=== PATIENT | male | born 1960 | race Caucasian/White ===

== ENCOUNTER 2019-12-19 10:25 | Outpatient (CLI) | payer BC, SELFPAY ==
[2019-12-19 10:45] LABS: Basophils Absolute Auto 0.02 K/mm3 (0.00-0.10); Basophils Percent Auto 0.3 % (0.0-1.0); Eosinophils Absolute Auto 0.19 K/mm3 (0.02-0.50); Eosinophils Percent Auto 3.2 % (1.0-6.0); Hematocrit 41.4 % (40.0-54.0); Hemoglobin 14.3 g/dL (14.0-18.0); Immature Granulocyte Absolute 0.02 K/mm3 (0.00-0.00); Immature Granulocyte Percent A 0.3 % (0.0-0.0); Lymphocytes Absolute Auto 1.58 K/mm3 (1.10-4.50); Mean Corpuscular HGB Conc 34.5 g/dL (32.0-36.0); Mean Platelet Volume 10.5 fl (8.7-11.0); Monocytes Percent Auto 6.8 % (2.0-11.0); Neutrophils Absolute Auto 3.6 K/mm3 (1.7-7.2); Neutrophils Percent Auto 62.4 % (50.0-70.0); Platelet Count Result 211 K/mm3 (150-420); Red Blood Count 4.76 M/mm3 (4.70-6.10); Red Cell Distribution Width 11.9 % (11.6-14.4); White Blood Count 5.9 K/mm3 (4.8-10.8)
[2019-12-19 11:08] LABS: Appearance Urine Clear (Clear); Bilirubin Urine Negative (Negative); Color Urine Yellow (Yellow); Glucose Urine UA Negative (Negative); Ketones Urine Negative (Negative); Leukocyte Esterase Ur Negative (Negative); Nitrate Urine Negative (Negative); Protein Urine Negative (Negative); Specific Grav Ur >= 1.030 (1.010-1.020); Urobilinogen Urine 0.2 mg/dL (0.2-1.0); pH Urine 5.5 (5.0-8.0)
[2019-12-19 11:39] LABS: Alanine Aminotransferase 50 U/L (16-63); Albumin Level 4.4 g/dL (3.4-5.0); Alkaline Phosphatase 79 U/L (46-116); Anion Gap 15.3 mmol/L (7-16); Aspartate Amino Transferase 26 U/L (15-37); Bilirubin,Total 1.5 mg/dL (0.00-1.00); Calcium 8.5 mg/dL (8.5-10.1); Carbon Dioxide 26 mmol/L (21-32); Chloride 106 mmol/L (98-108); Cholesterol 104 mg/dL (0-200); Estimated Glomerular Filt Rate > 60; Glucose 100 mg/dL (70-99); HDL Direct 33 mg/dL (40-60); LDL Cholesterol Calculated 52 mg/dL (<130); Potassium 4.3 mmol/L (3.5-5.1); Prostate Specific Antigen 0.7 ng/mL (< OR = 4.0); Sodium 143 mmol/L (136-145); Thyroid Stimulating Hormone 1.25 uIU/mL (0.36-3.74); Total Protein 6.9 g/dL (6.4-8.2); Triglycerides 94 mg/dL (0-150)
[2019-12-19 11:42] LABS: Add Urine Microscopic? YES; Blood Urine Trace-Intact (Negative); RBC Urine 0-2 /hpf (0-2); WBC Urine 0-3 /hpf (0-3)
[2019-12-19 11:43] LABS: Bacteria Urine None seen /hpf; Squamous Epithelial Cell Urine Rare /hpf (Few)
[2019-12-19 11:51] LABS: Blood Urea Nitrogen 13 mg/dL (7-18); Osmolality Calculated 296 mOsm/kg (285-295)
== END 2019-12-19 10:26 | disposition home or self-care (01) ==
PROVIDERS: PCP Internal Medicine; Visit Provider Internal Medicine
DX: Z00.00 Encounter for general adult medical examination without abnormal findings (principal); E78.5 Hyperlipidemia, unspecified; Z12.5 Encounter for screening for malignant neoplasm of prostate
CPT/HCPCS: 36415; 80053; 80061; 81001; 84153; 84443; 85025; G0103

== ENCOUNTER 2020-05-23 11:48 | Emergency (ER) | payer BC, SELFPAY ==
--- NOTE | ~2020-05-23 | CT_ITS ---
EXAMINATION: CT abdomen pelvis w con EXAM DATE: 05/23/2020 13:40 INDICATION: Fever, body ache, nausea. TECHNIQUE: Spiral CT of the abdomen and pelvis was performed following intravenous injection of 100 m L Omnipaque 350. Axial, coronal and sagittal images were reviewed. The dose-length product (DLP) fo r this examination was 965.01 mGy-cm. The exposure was tailored according to patient size (auto mA e xposure control), and iterative reconstruction (ASIR) was used as additional dose reduction technique . Comparison is made to prior examination from 02/02/2013. FINDINGS: The liver, spleen, adrenal glands and pancreas are unremarkable. Gallbladder is unremarkab le. No biliary obstruction. Portal and splenic veins are patent. Kidneys enhance symmetrically. T here is no hydronephrosis. The prostate is unremarkable. Small left inguinal fat-containing hernia. The bladder is unremarkable. There is no retroperitoneal or pelvic lymphadenopathy. The appendix is normal. The stomach and small bowel are unremarkable. There is expected amount of c olonic stool. No free intraperitoneal gas. The heart is normal in size. There are no pericardial or pleural effusions. The lung bases are unremarkable. There are no osteoblastic or osteolytic les ions identified. IMPRESSION: 1. No acute intra-abdominal findings. Reviewed, dictated and finalized at location A.
--- NOTE | ~2020-05-23 | XR_ITS ---
EXAMINATION: XR chest 2V EXAM DATE: 05/23/2020 13:43 INDICATION: Chest pain. Nausea, body aches. TECHNIQUE: Frontal and lateral projections of the chest obtained and reviewed. Comparison is made to prior examination from 05/04/2008. FINDINGS: Left midlung zone granuloma. The lungs are otherwise clear. There are no pleural effusion s. The cardiomediastinal silhouette is within normal limits. There is no pneumothorax suspected. T he bones and soft tissues are unremarkable. IMPRESSION: No acute cardiopulmonary findings. Reviewed, dictated and finalized at location A.
[2020-05-23 12:10] VITALS: BP 131/79; PULSE 106; RESP 16; TEMP 37.6; O2SAT 95
--- NOTE | 2020-05-23 12:14 | ECG_ITS ---
Measurements Intervals [place] Rate: 94 P: 18 NV: 136 QRS: -13 QRSD: 106 T: 14 QT: 350 QTc: 438 Interpretive Statements SINUS RHYTHM BASELINE ARTIFACT- I, III, AVR, AVL NORMAL ECG Electronically Signed On 05-23-2020 14:13:04 CDT by Dandre Espana D.O.
[2020-05-23] MEDS: ONDANSETRON INJ 4 MG/2 ML VIAL IV PUSH (12:31)
[2020-05-23] MEDS: PANTOPRAZOLE SODIUM IV 40 MG VIAL IV PUSH (12:31)
[2020-05-23] MEDS: SODIUM CHLORIDE 0.9% IV 1,000 ML 999 ML IV CONT (12:32)
[2020-05-23 13:00] LABS: Hematocrit 37.7 % (40.0-54.0); Hemoglobin 13.2 g/dL (14.0-18.0); Mean Corpuscular Volume 88.5 fL (78.0-102.0); Mean Platelet Volume 10.6 fl (8.7-11.0); Platelet Count Result 223 K/mm3 (150-420); Red Blood Count 4.26 M/mm3 (4.70-6.10); Red Cell Distribution Width 12.2 % (11.6-14.4)
[2020-05-23 13:03] LABS: White Blood Count 20.6 K/mm3 (4.8-10.8)
[2020-05-23 13:12] LABS: BNP 7 pg/mL (0-100)
[2020-05-23 13:16] LABS: Partial Thromboplastin Time 26.9 SEC (22.3-31.6)
[2020-05-23 13:17] LABS: D Dimer < 0.19 mg/L (0.19-0.50)
[2020-05-23 13:18] LABS: Add Urine Microscopic? YES; Appearance Urine Clear (Clear); Bilirubin Urine Negative (Negative); Blood Urine Negative (Negative); Color Urine Yellow (Yellow); Glucose Urine UA Negative (Negative); Ketones Urine Trace (Negative); Leukocyte Esterase Ur Negative (Negative); Nitrate Urine Negative (Negative); Protein Urine Negative (Negative); Urobilinogen Urine 0.2 mg/dL (0.2-1.0); pH Urine 5.5 (5.0-8.0)
[2020-05-23 13:19] LABS: Alanine Aminotransferase 60 U/L (16-63); Albumin Level 3.6 g/dL (3.4-5.0); Alkaline Phosphatase 103 U/L (46-116); Anion Gap 17.1 mmol/L (7-16); Aspartate Amino Transferase 11 U/L (15-37); Bilirubin,Total 1.1 mg/dL (0.00-1.00); Blood Urea Nitrogen 20 mg/dL (7-18); Carbon Dioxide 21 mmol/L (21-32); Chloride 101 mmol/L (98-108); Estimated Glomerular Filt Rate > 60; Glucose 108 mg/dL (70-99); Lipase 186 U/L (73-393); Osmolality Calculated 283 mOsm/kg (285-295); Potassium 4.1 mmol/L (3.5-5.1); Sodium 135 mmol/L (136-145); Total Protein 6.6 g/dL (6.4-8.2)
[2020-05-23 13:19] LABS: Bacteria Urine None seen /hpf; RBC Urine 0-2 /hpf (0-2); WBC Urine 0-3 /hpf (0-3)
[2020-05-23 13:20] LABS: Troponin I < 0.02 ng/mL (0.00-0.056)
[2020-05-23 13:25] LABS: Lactic Acid 0.7 mmol/L (0.4-2.0)
[2020-05-23 13:28] LABS: Band Neutrophils Percent 1 % (0-6); Eosinophils Percent Manual 1 % (1-6); Lymphocytes Absolute Manual 1.23 K/mm3 (1.1-4.5); Lymphocytes Percent Manual 6 % (18-44); Monocytes Percent Manual 1 % (3-9); Neutrophils Absolute Manual 18.95 K/mm3 (1.3-6.7); Neutrophils Percent Manual 91 % (46-73); Platelet Estimate Adequate (Adequate); Total Cells Counted 100
--- NOTE | 2020-05-23 14:05 | ED.WEAKNESS ---
HPI - Weakness General Chief complaint: Weakness Stated complaint: fever body aches nasuea Source: patient Mode of arrival: ambulatory Limitations: no limitations History of Present Illness HPI Narrative: Patient presents with generalized weakness and abdominal pain generalized some localizing to his mid abdomen and periumbilical area with low-grade fever and chills with some some nausea with no vomiting currently no chest pain no shortness of breath but has been having bouts of loose stools. There is currently no dysuria no hematuria no flank pain no hematuria. The patient recently had a course of antibiotics for root canal approximately 3 to 4 weeks ago and was given amoxicillin initially and subsequently was given clindamycin. Complaint: generalized weakness Onset (ago): day(s) Duration: constant Location: generalized Severity: moderate Severity scale (1-10): 5 Related Data Home Medications Medication Instructions Recorded Confirmed aspirin [Aspir-81] 81 mg PO DAILY 05/23/20 05/23/20 atorvastatin 20 mg PO DAILY 05/23/20 05/23/20 omega 3-cil-txo-fish oil [Fish Oil] 1 cap PO DAILY 05/23/20 05/23/20 pantoprazole 40 mg PO DAILY 05/23/20 05/23/20 Allergies Allergy/AdvReac Type Severity Reaction Status Date / Time albuterol AdvReac Unknown Fatigued Verified 05/23/20 12:59 duloxetine AdvReac Unknown Fatigued Verified 05/23/20 12:59 gabapentin AdvReac Unknown Fatigued Verified 05/23/20 12:59 nortriptyline AdvReac Unknown Fatigued Verified 05/23/20 12:59 Review of Systems Review of Systems: All systems reviewed & are unremarkable except as noted in HPI and below [facility] Past Medical History Medical History GERD (gastroesophageal reflux disease) HLD (hyperlipidemia) Exam Const: General: no acute distress and alert Orientation/consciousness: patient oriented x3 HENMT: Head: normal to inspection Eyes: Conjunctivae: conjunctivae normal Pupils: Equal, round and reactive pupils present EOM: EOMs intact bilaterally Neck: Neck: normal visual inspection and no meningeal signs Chest: Chest palpation & inspection: normal inspection of the chest Resp: Effort & Inspection: normal respiratory effort Course Course Emergency Course: reassessment of patient after IV fluids and also received IV Flagyl feels some mildly better and not as weak. Vital Signs Vital signs: Vital Signs Temperature 37.6 C 05/23/20 12:10 Pulse Rate 106 H 05/23/20 12:10 Respiratory Rate 16 05/23/20 12:10 Blood Pressure 131/79 05/23/20 12:10 Pulse Oximetry 95 05/23/20 12:10 Temperature 37.6 C 05/23/20 12:10 Pulse Rate 106 H 05/23/20 12:10 Respiratory Rate 16 05/23/20 12:10 Blood Pressure 131/79 05/23/20 12:10 Pulse Oximetry 95 05/23/20 12:10 MDM - Weakness Lab Data Attestation: I reviewed the patient's lab results. Result diagrams: 05/23/20 12:51 05/23/20 12:51 Labs: Lab Results 05/23/20 05/23/20 05/23/20 Range/Units 12:51 12:51 12:51 WBC 20.6 H* (4.8-10.8) K/mm3 RBC 4.26 L (4.70-6.10) M/mm3 Hgb 13.2 L (14.0-18.0) g/dL Hct 37.7 L (40.0-54.0) % MCV 88.5 (78.0-102.0) fL MCH 31.0 (27.0-31.0) pg MCHC 35.0 (32.0-36.0) g/dL RDW 12.2 (11.6-14.4) % Plt Count 223 (150-420) K/mm3 MPV 10.6 (8.7-11.0) fl Immature Gran % (Auto) Not Reportable Neut % (Auto) Not Reportable Lymph % (Auto) Not Reportable Sanders % (Auto) Not Reportable Eos % (Auto) Not Reportable Baso % (Auto) Not Reportable Lymph # (Auto) Not Reportable Sanders # (Auto) Not Reportable Eos # (Auto) Not Reportable Baso # (Auto) Not Reportable Abs Immat Gran (auto) Not Reportable Absolute Neuts (auto) Not Reportable Absolute Nucleated RBC Not Reportable Total Counted 100 Neutrophils % (Manual) 91 H (46-73) % Band Neutrophils % 1 (0-6)
[2020-05-23] MEDS: metroNIDAZOLE 500 MG/ISO 100ML 500 MG/100 ML BAG 100 MG IVPB (14:07)
[2020-05-23 15:05] VITALS: RESP 17
== END 2020-05-23 15:10 | disposition home or self-care (01) ==
PROVIDERS: Emergency Provider Emergency Medicine; PCP Internal Medicine
DX: R53.1 Weakness (principal); K52.9 Noninfective gastroenteritis and colitis, unspecified
CPT/HCPCS: 36415; 71046; 74177; 80053; 81001; 83605; 83690; 83880; 84484; 85025; 85380; 85610; 85730; 87040; 87324; 93005; 96361; 96365; 96375; 99283; 99284; C9113; J2405; J7030; Q9965

== ENCOUNTER 2021-09-04 12:07 | Outpatient (CLI) | payer OTHER, SELFPAY ==
--- NOTE | ~2021-09-04 | XR_ITS ---
XR elbow LT min 3V DATE: 09/04/2021 12:38 INDICATION: Left elbow pain TECHNIQUE: 4 views COMPARISON: None FINDINGS: No fracture or dislocation or joint effusion. No periosteal reaction or bone destruction. IMPRESSION: Negative Reviewed, dictated and finalized at location A. IMPRESSION: Negative
== END 2021-09-04 12:08 | disposition home or self-care (01) ==
LOC: CHSLAB 12:15 → CHSIMG 12:16
PROVIDERS: PCP Internal Medicine; Visit Provider Internal Medicine
DX: M25.522 Pain in left elbow (principal)
CPT/HCPCS: 73080

== ENCOUNTER 2021-10-11 07:53 | Outpatient (RCR) | payer OTHER, SELFPAY ==
--- NOTE | 2021-10-11 09:10 | PTOPEVAL ---
Thank you for referring Isma Zamora to [facility].? The patient is scheduled to be seen for therapy? ____x/week for ___ weeks. Please review, sign, date and return this plan of care ANGEL. I agree with and certify that the following plan of care is medically necessary. Referring Physician Date Admitting Provider: Attending Provider: Nico Parisi MD Referring Provider: *PT Outpatient Evaluation Start: 10/11/21 08:02 Freq: Status: Active Protocol: Document 10/11/21 08:05 [facility] (Rec: 10/11/21 09:07 [facility] [email or web address]) Therapy Assessment Status Assessment Status Assessment Status Evaluation Evaluation Information Problem Diagnosis L elbow pain Onset 09/05/21 Additional Evaluation Detail quick dash = 52% functionally declined Subjective Information patient reports he injured his Query Text:As Reported By Patient/ L elbow while at work about 6 Family -7 months ago. he reports the pain initially got a bit better, but came back and has been continuing to stay with him. he reports he does a lot of L UE repetitive motion at work. he reports he works at [employer]. he reports he is still working but is on light duty. he reports to return to back to full duty he needs to be able to tolerate pushing and pulling activities with the L hand repetitively for 30-60 minutes at a time. 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 he reports he has increased pain with turning his arm facing his palm up, and pulling his arm towards him. Prior Level of Function Comments Additional Prior Level of Function prior to 6-7 months ago, no Comments issues with the L elbow. Pain Assessment Timing of Pain Assessment Timing of Pain Assessment Assessment Pain Scale Pain Scale Used Numeric (1 - 10) Self Report Pain Assessment Left Elbow(s) Reported Pain Level 6 Greatest Pain Intensity 10 Pain Score Pain Score 6: Self Report Interventions Used Interventions Used By Clinicians Medication,Rest,Support of Extremity Upper Extremity Range of Motion
--- NOTE | 2021-10-31 17:58 | PTOPEVAL ---
Thank you for referring Isma Zamora to [facility].? The patient is scheduled to be seen for therapy? ____x/week for ___ weeks. Please review, sign, date and return this plan of care ANGEL. I agree with and certify that the following plan of care is medically necessary. Referring Physician Date Admitting Provider: Attending Provider: Nico Parisi MD Referring Provider: *PT Outpatient Evaluation Start: 10/11/21 08:02 Freq: Status: Active Protocol: Document 10/31/21 09:30 [facility] (Rec: 10/31/21 17:56 [facility] [email or web address]) Therapy Assessment Status Assessment Status Assessment Status Progress Evaluation Information Problem Diagnosis L elbow pain Onset 09/05/21 Subjective Information patient reports he is sore Query Text:As Reported By Patient/ this date. he reports he did Family well over the weekend, but reports today he has had more pain/soreness since he woke up this morning. Pain Assessment Timing of Pain Assessment Timing of Pain Assessment Assessment Pain Scale Pain Scale Used Numeric (1 - 10) Self Report Pain Assessment Left Elbow(s) Reported Pain Level 8 Pain Score Pain Score 8: Self Report Interventions Used Interventions Used By Clinicians Activity or ADL's,Education, Exercise,Manual Therapy Techniques,Ultrasound Upper Extremity Muscle Strength Testing General Upper Extremity Strength Gross Upper Extremity Strength Comments 4/5 L elbow flex with increased pain in the L elbow and forearm in supination 4+/5 L elbow flex strength with no pain increased with forearm in pronation Palpation Assessment Palpation Palpation tenderness to palpation along the distal biceps and acorss the jt line onto the radial tuberosity. General Exercise General Exercises Exercise Description -UBE 8 min level 4 fwd/retro Query Text:Record Sets, Reps, -doorway biceps stretch 3x30 Resistance, and Position seconds -biceps curls 10lb 2x10 -tband blue biceps curls 2x10 -progress note update Manual Therapy Manual Therapy Treatment Comments IASTM to left elbow crease x Query Text:Include Technique and 10 min to increase tissue ext Result of Technique Modalities Ultrasound Left Elbow Patient Position Sitting Coupling Medium
--- NOTE | 2021-11-14 14:10 | PTOPEVAL ---
Thank you for referring Isma Zamora to [facility].? The patient is scheduled to be seen for therapy? ____x/week for ___ weeks. Please review, sign, date and return this plan of care ANGEL. I agree with and certify that the following plan of care is medically necessary. Referring Physician Date Admitting Provider: Attending Provider: Nico Parisi MD Referring Provider: *PT Outpatient Evaluation Start: 10/11/21 08:02 Freq: Status: Active Protocol: Document 11/14/21 10:00 [facility] (Rec: 11/14/21 14:07 [facility] [email or web address]) Therapy Assessment Status Assessment Status Assessment Status Re-evaluation Evaluation Information Problem Diagnosis L elbow pain Onset 09/05/21 Additional Evaluation Detail quick dash = 20% functionally declined FABQ-PA = 16 FABQ-W = 47 Subjective Information patient reports he feels good Query Text:As Reported By Patient/ this date. he reports low Family pain in the L elbow today. he reports he continues to work, but is on light duty. he reports he does not have a follow up with the MD as of this date. he reports he has been feeling better for about 1 week or more. Pain Assessment Timing of Pain Assessment Timing of Pain Assessment Assessment Pain Scale Pain Scale Used Numeric (1 - 10) Self Report Pain Assessment Left Elbow(s) Reported Pain Level 2 Greatest Pain Intensity 3 Pain Score Pain Score 2: Self Report Interventions Used Interventions Used By Clinicians Activity or ADL's,Education, Exercise,Manual Therapy Techniques,Ultrasound Upper Extremity Range of Motion General Upper Extremity Range of Motion Gross Upper Extremity Range of Motion WNL bilaterl shoulder arom Comments WNL bilateral elbow arom 80 degrees R forearm pronation 75 degrees R forearm supination 80 degeres L forearm pronation 75 degrees L forearm supination 140.5lbs 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
--- NOTE | 2021-12-05 10:47 | PTOPEVAL ---
Thank you for referring Isma Zamora to [facility].? The patient is scheduled to be seen for therapy? ____x/week for ___ weeks. Please review, sign, date and return this plan of care ANGLE. I agree with and certify that the following plan of care is medically necessary. Referring Physician Date Admitting Provider: Attending Provider: Nico Parisi MD Referring Provider: *PT Outpatient Evaluation Start: 10/11/21 08:02 Freq: Status: Active Protocol: Document 12/05/21 10:00 [facility] [[email or web address] (Rec: 12/05/21 10:47 [facility] [[email or web address]) Therapy Assessment Status Assessment Status Assessment Status Discharge Evaluation Information Problem Diagnosis L elbow pain Onset 09/05/21 Additional Evaluation Detail quick dash = 6% functionally declined Subjective Information patient reports he feels good Query Text:As Reported By Patient/ this date. he reports very Family rarely he will get a sharp pain that comes and goes quickly and does not come back . he reports he is back to all prior level work activities/ duties without limitation. 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
== END 2021-12-05 13:45 | disposition home or self-care (01) ==
LOC: CHSPT 07:53
PROVIDERS: PCP Internal Medicine; Visit Provider Internal Medicine
DX: M25.522 Pain in left elbow (principal)
CPT/HCPCS: 97014; 97035; 97110; 97140; 97161; G0283

== ENCOUNTER 2023-06-09 00:14 | Emergency (ER) | payer BC, OTHER, SELFPAY ==
--- NOTE | ~2023-06-09 | CT_ITS ---
EXAMINATION: CT abdomen pelvis w con DATE: 06/09/2023 02:55 INDICATION: Perineal cellulitis. TECHNIQUE: Computed tomography (CT) of the abdomen and pelvis was performed with 100 mL Omnipaque 350 intravenous contrast. Automated exposure control and iterative reconstruction technique were employe d. The dose-length product was 1223.29 mGy-cm. COMPARISON: CT abdomen and pelvis 05/23/2020 FINDINGS: The visualized portions of the lung bases demonstrate mild atelectasis. Calcified left lung nodules are consistent with old granulomatous disease. No pleural effusion. The heart size is normal . No pericardial effusion. The liver, gallbladder, spleen, pancreas, adrenal glands, and kidneys are normal. There is a left inguinal hernia containing fat. There are no dilated loops of bowel. The appe ndix is normal. There are no pathologically enlarged lymph nodes. There is no ascites. The prostate i s mildly enlarged. There is scrotal skin thickening. In the perineum, there is a 5.4 x 3.0 x 1.8 cm r im-enhancing abscess with punctate focus of gas. There is severe lower lumbar spondylosis. IMPRESSION: 1. 5.4 x 3.0 x 1.8 cm abscess in the perineum. 2. Left inguinal hernia containing fat. Reviewed, dictated and finalized at location E.
[2023-06-09 00:15] VITALS: BP 156/97; PULSE 116; RESP 18; TEMP 37.1; O2SAT 97
--- NOTE | 2023-06-09 00:21 | ED.SKABFB ---
HPI - Skin/Abscess/Foreign Bdy General Chief complaint: Skin/Abscess/Foreign Body Stated complaint: Swelling Source: patient Mode of arrival: ambulatory Limitations: no limitations History of Present Illness HPI narrative: 63-year-old male with a history of dyslipidemia, GERD status post back surgery status post bladder surgery presents to the ER with a 10 day history of -- erythema and tenderness of the perineum behind the scrotum and in front of the rectum. He had a prior infection many years ago which was treated with antibiotics. patient denied any anal sex or using any anal toys. MD complaint: rash Onset (ago): day(s) ( Started 10 days ago) Tetanus up to date: no Location: genitals ( located in the perineum) Severity: severe Severity scale (1-10): 8 Quality: burning Pain Consistency: constant Relieving factors: none Exacerbating factors: none Associated symptoms: chills Treatments prior to arrival: none Related Data Home Medications Medication Instructions Recorded Confirmed aspirin 81 mg tablet,delayed 81 mg PO DAILY 05/23/20 05/23/20 release (Aspir-) atorvastatin 20 mg tablet 20 mg PO DAILY 05/23/20 05/23/20 omega 6-ngc-brr-fish oil 300 1 cap PO DAILY 05/23/20 05/23/20 mg-1,000 mg capsule (Fish Oil) pantoprazole 40 mg tablet,delayed 40 mg PO DAILY 05/23/20 06/09/23 release Allergies Allergy/AdvReac Type Severity Reaction Status Date / Time albuterol AdvReac Unknown Fatigued Verified 05/23/20 12:59 duloxetine AdvReac Unknown Fatigued Verified 05/23/20 12:59 gabapentin AdvReac Unknown Fatigued Verified 05/23/20 12:59 nortriptyline AdvReac Unknown Fatigued Verified 05/23/20 12:59 Review of Systems Review of Systems: All systems reviewed & are unremarkable except as noted in HPI and below Constitutional: Constitutional: Reports as per HPI and Reports no additional constitutional complaints Eyes: Eyes: Reports as per HPI and Reports no additional eye complaints ENT: Reports system reviewed and no additional complaints, except as documented and Reports as per HPI Cardiovascular: Cardiovascular: Reports as per HPI and Reports no additional cardiovascular complaints Respiratory: Respiratory: Reports as per HPI and Reports no additional respiratory complaints Gastrointestinal: Gastrointestinal: Reports as per HPI and Reports no additional gastrointestinal complaints Genitourinary: Genitourinary: Reports no additional male genitourinary complaints and Reports as per HPI Musculoskeletal: Musculoskeletal: Reports no additional musculoskeletal complaints Integumentary/Breasts: Comments: pain and swelling of the perineum. Neurologic: Reports system reviewed and no additional complaints, except as documented and Reports as per HPI Psychiatric: Psychiatric: Reports no additional psychiatric complaints and Reports as per HPI Endocrine: Endocrine: Reports no additional endocrine complaints and Reports as per HPI Hematologic/Lymphatic: Hematologic/Lymphatic: Reports no additional hematologic/lymphatic complaints and Reports as per HPI Allergic/Immunologic: Allergic/Immunologic: Reports no additional allergic/immunologic complaints and Reports as per HPI [facility] Past Medical History Medical History (Updated 06/09/23 @ 06:14 by Thor Arredondo MD) GERD (gastroesophageal reflux disease) HLD (hyperlipidemia) Exam Const: General: ill appearing Nutritional Appearance: well nourished Orientation/consciousness: patient oriented x3 Limitations: no limitations HENMT: Head: normal to inspection Ears: external ears normal Face/Nose/Sinus: Normal external nose present Face and sinus: normal facial exam Mouth: Yes Normal oral and palatal mucosa present Throat: posterior oropharynx normal Eyes: Conjunctivae: conjunctivae normal Pupils: Equal, round and reactive pupils present EOM: EOMs intact bilaterally Direct Ophthalmoscopy: no photophobia Neck: Neck: normal visual inspection, no lymp
[2023-06-09] MEDS: HYDROmorphone HCL INJ (*CRX) 2 MG/ML VIAL 0.5 MG IV PUSH ×2 (01:15→02:00)
[2023-06-09] MEDS: ONDANSETRON INJ 4 MG/2 ML VIAL IV PUSH (01:15)
[2023-06-09] MEDS: LACTATED RINGERS 1,000 ML 999 ML IV CONT (01:16)
[2023-06-09] MEDS: PIPERACILLIN/TAZ 4.5G/NS 100ML 4.5 GM/100 ML BAG IVPB (01:16)
[2023-06-09 01:32] LABS: Basophils Absolute Auto 0.05 K/mm3 (0.00-0.10); Basophils Percent Auto 0.4 % (0.0-1.0); Eosinophils Percent Auto 0.9 % (1.0-6.0); Hematocrit 36.1 % (40.0-54.0); Hemoglobin 12.5 g/dL (14.0-18.0); Immature Granulocyte Absolute 0.04 K/mm3 (0.00-0.00); Immature Granulocyte Percent A 0.4 % (0.0-0.0); Lymphocytes Absolute Auto 1.05 K/mm3 (1.10-4.50); Lymphocytes Percent Auto 9.2 % (18.0-42.0); Mean Corpuscular HGB Conc 34.6 g/dL (32.0-36.0); Mean Corpuscular Hemoglobin 30.9 pg (27.0-31.0); Mean Corpuscular Volume 89.1 fL (78.0-102.0); Mean Platelet Volume 10.9 fl (8.7-11.0); Monocytes Absolute Auto 0.93 K/mm3 (0.10-0.90); Monocytes Percent Auto 8.2 % (2.0-11.0); Neutrophils Absolute Auto 9.2 K/mm3 (1.7-7.2); Neutrophils Percent Auto 80.9 % (50.0-70.0); Platelet Count Result 188 K/mm3 (150-420); Red Blood Count 4.05 M/mm3 (4.70-6.10); Red Cell Distribution Width 12.3 % (11.6-14.4); White Blood Count 11.4 K/mm3 (4.8-10.8)
[2023-06-09 01:41] LABS: Alanine Aminotransferase 73 U/L (16-63); Albumin Level 3.4 g/dL (3.4-5.0); Alkaline Phosphatase 130 U/L (46-116); Anion Gap 9 mmol/L (8-16); Aspartate Amino Transferase 36 U/L (15-37); Bilirubin,Total 1.4 mg/dL (0.00-1.00); Blood Urea Nitrogen 19 mg/dL (7-18); Calcium 8.3 mg/dL (8.5-10.1); Carbon Dioxide 26 mmol/L (21-32); Chloride 107 mmol/L (98-108); Estimated CRCL calculation 99 ml/min; Estimated Glomerular Filt Rate > 60; Glucose 149 mg/dL (70-99); Osmolality Calculated 299 mOsm/kg (285-295); Sodium 142 mmol/L (136-145); Total Protein 6.3 g/dL (6.4-8.2)
[2023-06-09 01:48] LABS: Lactic Acid Reflex 0.4 mmol/L (0.4-2.0)
[2023-06-09 02:22] LABS: Appearance Urine Clear (Clear); Bilirubin Urine Negative (Negative); Blood Urine Trace-Intact (Negative); Color Urine Light Yellow (Yellow); Glucose Urine UA Negative (Negative); Ketones Urine Trace (Negative); Leukocyte Esterase Ur Negative LEU/UL (Negative); Nitrate Urine Negative (Negative); Protein Urine Negative (Negative); Specific Grav Ur 1.025 (1.010-1.020); Urobilinogen Urine 0.2 mg/dL (0.2-1.0)
[2023-06-09 02:31] LABS: Add Urine Microscopic? YES; Amorphous Sediment Urine Few; Mucus Urine Heavy /lpf; RBC Urine 0-2 /hpf (0-2)
[2023-06-09 06:04] VITALS: BP 120/82; PULSE 89; RESP 18; O2SAT 95
[2023-06-09] MEDS: MORPHINE SULFATE (*CRX) 4 MG/ML INJ IV PUSH (08:13)
[2023-06-09 09:00] VITALS: BP 121/80; PULSE 88; RESP 20; TEMP 36.7; O2SAT 96
--- NOTE | 2023-06-15 12:38 | PC.NURSE ---
final blood cultures x2 reviewed. no growth after 5 days. no change in plan of care.
== END 2023-06-09 09:05 | disposition short-term general hospital (02) ==
PROVIDERS: Internal Medicine Critical Care Medicine; Emergency Provider Emergency Medicine; PCP Internal Medicine
DX: L02.215 Cutaneous abscess of perineum (principal); R74.01 Elevation of levels of liver transaminase levels; E78.5 Hyperlipidemia, unspecified
CPT/HCPCS: 36415; 74177; 80053; 81001; 83605; 85025; 87040; 96365; 96366; 96367; 96375; 96376; 99285; J1170; J2270; J2405; J2543; J3370; J7120; Q9967

== ENCOUNTER 2023-06-09 09:40 | Inpatient (IN) | payer OTHER, SELFPAY ==
[2023-06-09] VITALS (15 sets, daily range): BP systolic 117–144; BP diastolic 72–96; PULSE 77–92; RESP 10–18; TEMP 36.1–37.2; O2SAT 94–100; BMI 69.0
--- NOTE | 2023-06-09 11:06 | PM.IMHP ---
H&P: HPI History of Present Illness Date/Time: 06/09/23 11:06 Chief Complaint: Perineal abscess Narrative: This is a 63-year-old man who presented to the emergency department in [place] with complaints of pain and swelling to his perineum. He had noticed worsening symptoms over the past several days. She states it was very difficult for him to work yesterday. He has felt slightly feverish but has not had any registered fevers. He denies any change in bowel habits or hematochezia. He denies any open wounds or drainage. He has had 1 episode somewhat similar to this several years ago and this was treated with oral antibiotics. A CT was obtained in the emergency department and he was noted to have a fluid collection in the perineal region consistent with an abscess. He was then transferred to [facility] for further treatment. Review of Systems Review of Systems: All systems reviewed & are unremarkable except as noted in HPI and below Constitutional: Constitutional: Reports fever(s) Eyes: Eyes: Denies change in vision ENT: Denies hearing loss, Denies neck pain and Denies sore throat Cardiovascular: Cardiovascular: Denies chest pain and Denies dyspnea Respiratory: Respiratory: Denies cough, Denies dyspnea and Denies wheezing Genitourinary: Genitourinary: Denies hematuria and Denies dysuria Musculoskeletal: Musculoskeletal: Denies arthralgias, Denies joint swelling and Denies neck pain Allergic/Immunologic: Allergic/Immunologic: Denies wheezing [facility] Past Medical History Medical History GERD (gastroesophageal reflux disease) HLD (hyperlipidemia) Family History Family History (Updated 06/09/23 @ 11:09 by Jose Aguilar DO) Other No significant family history Social History Social History Alcohol intake: never Substance use: never Lack of Transportation: No Lack of Food: Never True Current Housing: I Have Housing Concerned About Future Housing: No Difficulty Paying Gas/Electric Bills: No Difficulty Paying for Meds: No Currently Unemployed: No Education: High School Diploma/GED Difficulty w/ Childcare or Family Care: No Spiritual care concerns: No Meds Home Medications and Allergies Home Medications Medication Instructions Recorded Confirmed Type aspirin 81 mg tablet,delayed 81 mg PO DAILY 05/23/20 06/09/23 History release (Aspir-) atorvastatin 20 mg tablet 20 mg PO DAILY 05/23/20 06/09/23 History pantoprazole 40 mg tablet,delayed 40 mg PO DAILY 05/23/20 06/09/23 History release Allergies Allergy/AdvReac Type Severity Reaction Status Date / Time albuterol AdvReac Unknown Fatigued Verified 05/23/20 12:59 duloxetine AdvReac Unknown Fatigued Verified 05/23/20 12:59 gabapentin AdvReac Unknown Fatigued Verified 05/23/20 12:59 nortriptyline AdvReac Unknown Fatigued Verified 05/23/20 12:59 Exam Const: General: alert; No acute distress Orientation/consciousness: patient oriented x3 Limitations: no limitations HENMT: Head: normocephalic and atraumatic Ears: hearing grossly normal bilaterally Face/Nose/Sinus: Normal external nose present and Normal nares present Mouth: Yes Normal oral and palatal mucosa present and Yes moist mucous membranes Eyes: General: appearance normal, both eyes and all related structures Conjunctivae: conjunctivae normal Sclera: sclerae normal Pupils: Equal, round and reactive pupils present EOM: EOMs intact bilaterally Neck: Neck: normal visual inspection, full ROM, no lymphadenopathy, supple and no JVD Lymphatic: no lymphadenopathy noted Chest: Chest palpation & inspection: normal inspection of the chest Resp: Effort & Inspection: normal respiratory effort and able to speak in complete sentences Auscultation: clear to auscultation bilaterally Percussion: percussion normal Cardio: Jugular venous distension:
--- NOTE | 2023-06-09 11:14 | P.PNAN_ITS ---
Anes - Initial Pre Proc Eval Procedure: Operation Date: 06/09/23 11:30 Proposed Procedures p I&D Sveta-Rectal Abscess - Jose Aguilar DO Date/Time: 06/09/23 11:14 Surgeon: Jose Aguilar DO Pre Op Diagnosis: perineal abscess Patient Data Age: 63 Gender: M Height: Weight: Allergies Allergy/AdvReac Type Severity Reaction Status Date / Time albuterol AdvReac Unknown Fatigued Verified 05/23/20 12:59 duloxetine AdvReac Unknown Fatigued Verified 05/23/20 12:59 gabapentin AdvReac Unknown Fatigued Verified 05/23/20 12:59 nortriptyline AdvReac Unknown Fatigued Verified 05/23/20 12:59 Home Medications Medication Instructions Recorded Confirmed Type aspirin 81 mg tablet,delayed 81 mg PO DAILY 05/23/20 06/09/23 History release (Aspir-) atorvastatin 20 mg tablet 20 mg PO DAILY 05/23/20 06/09/23 History pantoprazole 40 mg tablet,delayed 40 mg PO DAILY 05/23/20 06/09/23 History release Patient hx anesthesia problems: none Family hx anesthesia problems: none Results Review: All pre-operative results and documents have been reviewed as part of the pre- operative evaluation. FOR[facility]LY [facility] Past Medical History Medical History GERD (gastroesophageal reflux disease) HLD (hyperlipidemia) Family History Family History (Updated 06/09/23 @ 11:09 by Jose Aguilar DO) Other No significant family history Social History Social History (Updated 06/09/23 @ 11:19 by Jaspreet Stevenson DO) Alcohol intake: current Alcohol use details: 3-4/day Substance use: never Lack of Transportation: No Lack of Food: Never True Current Housing: I Have Housing Concerned About Future Housing: No Difficulty Paying Gas/Electric Bills: No Difficulty Paying for Meds: No Currently Unemployed: No Education: High School Diploma/GED Difficulty w/ Childcare or Family Care: No Spiritual care concerns: No Anes - Eval Final PreProcedure Day of Procedure 06/09/23 11:14 Patient weight: overweight Heart: regular rate and rhythm Lungs: clear to auscultation Airway: Mallampati scale class 1 Neurological: alert and oriented Last oral intake: >/= 8 hours ASA classification: III Emergent: no Anesthetic plan: proceed Anesthesia type and monitoring: general LMA and standard monitoring Results Review: All pre-operative results and documents have been reviewed as part of the pre- operative evaluation. Informed Consent: The patient's anesthetic plan and its attendant risks and benefits were discu ssed with the patient/family/POA. Questions were solicited and answers provided to the satisfaction of the patient/family/POA.
--- NOTE | 2023-06-09 11:15 | WPDHPUPDATE1 ---
History and Physical Update Update Date/Time: 06/09/23 11:15 History and Physical has been reviewed, including an updated exam of the patient. There are NO changes in the patient's condition. Risks, benefits, and alternatives have been discussed and questions answered. Patient agrees to proceed with procedure.
[2023-06-09] MEDS: LACTATED RINGERS 1,000 ML 30 ML IV CONT (11:58)
--- NOTE | 2023-06-09 11:58 | P.OP_ITS ---
Procedure Note - Detailed Date of Procedure 06/09/23 Pre-op Diagnosis perineal abscess Post-op Diagnosis Same Procedure Performed Incision and drainage of complicated perineal abscess Surgeon Jose Aguilar, DO Anesthesia General and Local (0.5% bupivacaine with epinephrine) Indications This is a 63-year-old man who presents with pain and swelling in the perineal region started over the last several days. He presented to [facility] and was noted to have evidence of an abscess. He was noted to have an elevated white blood count and CT showed evidence of a perineal abscess. He was then transferred to [facility] for further treatment. Discussions were made with the patient about treatment options and decision was made to proceed with incision and drainage of perineal abscess. Findings Incision and drainage of perineal abscess was performed. The patient was found to have a large subcutaneous abscess in the perineal region. It was tracking anterior towards the base of the scrotum as well as slightly posterior towards the anus. The loculations were broken up and the abscess was completely drained. The incision was about 4 cm long and about and about 10 ft of half- inch iodoform gauze was packed within the wound. Cultures were taken for aerobic and anaerobic culture and sensitivities. Description of Procedure Procedure as well as risks, benefits, and alternatives were discussed with the patient. Written consent was obtained and placed in chart prior to procedure. Patient was brought back to surgical suite. He was placed supine on operating table. Time-out was done to confirm patient and procedure. He was then intubated by the anesthesia department. He was then repositioned into dorsal lithotomy position. His perineal region was prepped and draped in sterile fashion using Betadine prep. 0.5% bupivacaine with epinephrine was infiltrated locally around the perineal region. A small incision was then made over the area of fluctuance using a 15 blade scalpel. Copious amounts of purulence drainage were drained. Cultures were taken with a culture swab for aerobic and anaerobic culture and sensitivities. A curved hemostat was then inserted and loculations were broken up bluntly. The incision was then extended to about 4 cm long to adequately open up the abscess cavity. Finger dissection was then used to break up any other loculations. The wound was then irrigated with sterile saline. No other abnormalities were noted. This was then packed with half-inch iodoform gauze. Fluff gauze, ABD pad, and mesh underwear were then applied. The patient was then awakened from anesthesia, extubated, and transferred to recovery. Estimated Blood Loss 10 Packing Yes (Half-inch iodoform gauze) Complications No immediate complications Condition Stable Disposition Floor [facility] Billing Surgery - Charge Forward: Surgery Billing
[2023-06-09] MEDS: BUPIVACAINE/EPINEPHRINE 0.5% 10 ML VIAL INFILTRATE (12:04)
[2023-06-09] MEDS: fentaNYL CITRATE INJ (*CRX) 100 MCG/2 ML VIAL 25 MCG IV PUSH ×4 (12:30→12:36)
[2023-06-09] MEDS: LACTATED RINGERS 1,000 ML 100 ML IV CONT (15:04)
[2023-06-09] MEDS: CEFEPIME 2 GM/NS 50 ML 2 GM/50 ML BAG IVPB (15:06)
[2023-06-09] MEDS: metroNIDAZOLE 500 MG/ISO 100ML 500 MG/100 ML BAG 100 MG IVPB ×2 (15:06→21:29)
[2023-06-09] MEDS: VANCOMYCIN 1,250 MG/NS 250 ML 1,250 MG/250 ML BAG 166.67 MG IVPB ×2 (17:40→21:30)
[2023-06-09] MEDS: HYDROcodone/acetaminophen (*CRX) 10-325 MG TABLET 1 TAB PO (18:42)
[2023-06-09] MEDS: MORPHINE SULFATE (*CRX) 4 MG/ML INJ IV PUSH (21:28)
[2023-06-10 02:00] VITALS: BMI 33.5
[2023-06-10 02:55] VITALS: BP 124/80; PULSE 77; RESP 18; TEMP 36.4; O2SAT 97
[2023-06-10] MEDS: CEFEPIME 2 GM/NS 50 ML 2 GM/50 ML BAG IVPB ×2 (03:19→15:51)
[2023-06-10] MEDS: HYDROcodone/acetaminophen (*CRX) 5-325 MG TABLET 1 TAB PO (04:12)
[2023-06-10 06:03] VITALS: BP 128/79; PULSE 72; RESP 16; TEMP 36.4; O2SAT 97
[2023-06-10 06:31] LABS: Hematocrit 36.1 % (42.0-52.0); Mean Corpuscular HGB Conc 33.2 g/dl (32-36); Mean Corpuscular Hemoglobin 30.9 pg (26-34); Mean Platelet Volume 10.8 fl (7.4-10.4); Platelet Count Result 195 k/mm3 (150-375); Red Blood Count 3.88 M/mm3 (4.6-6.20); Red Cell Distribution Width 12.5 % (11.5-14.5)
[2023-06-10 06:40] LABS: Anion Gap 5 mmol/L (8-16); Blood Urea Nitrogen 11 mg/dL (9-20); Calcium 8.3 mg/dL (8.4-10.2); Carbon Dioxide 20 mmol/L (22-30); Chloride 105 mmol/L (98-107); Estimated CRCL calculation 140 ml/min; Estimated Glomerular Filt Rate > 60; Glucose 179 mg/dL (65-110); Potassium 3.8 mmol/L (3.4-5.0); Sodium 130 mmol/L (137-145)
[2023-06-10] MEDS: metroNIDAZOLE 500 MG/ISO 100ML 500 MG/100 ML BAG 100 MG IVPB ×3 (06:54→22:28)
[2023-06-10] MEDS: PANTOPRAZOLE 40 MG TABLET PO (08:57)
[2023-06-10] MEDS: ENOXAPARIN 40 MG/0.4 ML SYRINGE SUB-Q (08:57)
[2023-06-10 14:19] VITALS: BP 131/75; PULSE 79; RESP 16; TEMP 36.2; O2SAT 97
[2023-06-10] MEDS: HYDROcodone/acetaminophen (*CRX) 10-325 MG TABLET 1 TAB PO (14:54)
--- NOTE | 2023-06-10 17:21 | PM.PNGS ---
Progress Note: A&P Assessment and Plan (1) Abscess of perineum: Code(s): L02.215 - Cutaneous abscess of perineum Status: Acute Assessment and Plan: Continue daily packing changes. Continue IV antibiotics. Cultures pending. (2) HLD (hyperlipidemia): Code(s): E78.5 - Hyperlipidemia, unspecified Status: Acute Subjective Subjective Date/Time Seen: 06/10/23 17:21 Interval history: Still experiencing pain. No fevers. No other complaints. Exam Skin: Other: Packing changed today. Minimal bloody drainage. Objective Data Vital Signs Vital Signs: Vital Signs - 24 hr 06/09/23 18:52 06/09/23 22:55 06/09/23 20:00 Temperature 36.6 C 36.2 C L Pulse Rate 90 85 85 Respiratory Rate 16 18 18 Blood Pressure 121/75 124/72 Pulse Oximetry 95 96 96 Oxygen Delivery Room Air 06/10/23 02:55 06/10/23 06:03 06/10/23 08:00 Temperature 36.4 C L 36.4 C L Pulse Rate 77 72 Respiratory Rate 18 16 Blood Pressure 124/80 128/79 Pulse Oximetry 97 97 Oxygen Delivery Room Air 06/10/23 14:19 Temperature 36.2 C L Pulse Rate 79 Respiratory Rate 16 Blood Pressure 131/75 Pulse Oximetry 97 Oxygen Delivery Intake/Output Intake/Output: Intake & Output 06/07/23 06/08/23 06/09/23 06/10/23 23:59 23:59 23:59 23:59 Intake Total 670 4030 Balance 670 4030 Meds/Results Medications: Active Medications Generic Name Dose Route Start Last Admin Trade Name Freq PRN Reason Stop Dose Admin Hydrocodone Bitart/Acetaminophen 1 tab 06/09/23 13:10 06/10/23 04:12 Hydrocodone/Acetaminophen (*Crx) 5-325 Mg Tablet PO 1 tab Q4H PRN Administration Pain Rated 4-6 Hydrocodone Bitart/Acetaminophen 1 tab 06/09/23 13:10 06/10/23 14:54 Hydrocodone/Acetaminophen (*Crx) 10-325 Mg Tablet PO 1 tab Q6H PRN Administration Pain Rated 7-10 Enoxaparin Sodium 40 mg 06/10/23 09:00 06/10/23 08:57 Enoxaparin 40 Mg/0.4 Ml Syringe SUB-Q 40 mg DAILY ERIC Administration Cefepime HCl 2 gm in 50 mls @ 100 mls/hr 06/09/23 15:00 06/10/23 15:51 Maxipime 2 Gm/Ns 50 Ml IVPB 100 mls/hr Q12H ERIC Administration Metronidazole 500 mg in 100 mls @ 100 mls/hr 06/09/23 14:00 06/10/23 14:01 Flagyl 500 Mg/Iso Soln 100 Ml IVPB 100 mls/hr Q8HR ERIC Administration Vancomycin HCl 1,500 mg in 500 mls @ 250 mls/hr 06/10/23 04:00 06/10/23 16:25 Vancomycin 1,500 Mg/D5w 500 Ml IVPB 250 mls/hr Q12H ERIC Administration Ibuprofen 600 mg 06/09/23 13:10 Ibuprofen 600 Mg Tablet PO Q6H PRN Pain Rated 1-3 Morphine Sulfate 2 mg 06/09/23 13:10 Morphine Sulfate (*Crx) 2 Mg/Ml Inj IV PUSH Q2H PRN Pain Rated 4-6 Morphine Sulfate 4 mg 06/09/23 13:10 06/09/23 21:28 Morphine Sulfate (*Crx) 4 Mg/Ml Inj IV PUSH 4 mg Q2H PRN Administration Pain Rated 7-10 Ondansetron HCl 4 mg 06/09/23 13:10 Ondansetron Inj 4 Mg/2 Ml Vial IV PUSH Q4H PRN Nausea And Vomiting Pantoprazole Sodium 40 mg 06/10/23 09:00 06/10/23 08:57 Pantoprazole 40 Mg Tablet PO 40 mg DAILY ERIC Administration Saccharomyces Boulardii 250 mg 06/10/23 17:00 Saccharomyces Boulardii 250 Mg Capsule PO TID [facility] Labs Labs: Laboratory Results - last 24 hr 06/10/23 06:09 WBC 12.0 H RBC 3.88 L Hgb 12.0 L Hct 36.1 L MCV 93.0 MCH 30.9 MCHC 33.2 RDW 12.5 Plt Count 195 MPV 10.8 H Sodium 130 L Potassium 3.8 Chloride 105 Carbon Dioxide 20 L Anion Gap 5 L BUN 11 Creatinine 0.60 L Estim Creat Clear Calc 140 Estimated GFR > 60 Glucose 179 H Calcium 8.3 L
[2023-06-10] MEDS: SACCHAROMYCES BOULARDII 250 MG CAPSULE PO (19:24)
[2023-06-10 20:00] VITALS: PULSE 82; RESP 13; O2SAT 97
[2023-06-10 21:29] VITALS: BP 138/77; PULSE 82; RESP 13; TEMP 36.2; O2SAT 97
[2023-06-11 03:52] LABS: Hematocrit 35.9 % (42.0-52.0); Hemoglobin 11.9 g/dL (14.0-18.0); Mean Corpuscular HGB Conc 33.1 g/dl (32-36); Mean Corpuscular Hemoglobin 30.7 pg (26-34); Mean Corpuscular Volume 92.5 fl (80-100); Mean Platelet Volume 10.4 fl (7.4-10.4); Platelet Count Result 191 k/mm3 (150-375); Red Blood Count 3.88 M/mm3 (4.6-6.20); Red Cell Distribution Width 12.7 % (11.5-14.5); White Blood Count 7.8 K/mm3 (4.5-10.0)
[2023-06-11] MEDS: CEFEPIME 2 GM/NS 50 ML 2 GM/50 ML BAG IVPB (03:54)
[2023-06-11 04:05] LABS: Anion Gap 4 mmol/L (8-16); Blood Urea Nitrogen 16 mg/dL (9-20); Calcium 8.4 mg/dL (8.4-10.2); Carbon Dioxide 27 mmol/L (22-30); Chloride 105 mmol/L (98-107); Estimated CRCL calculation 122 ml/min; Estimated Glomerular Filt Rate > 60; Glucose 114 mg/dL (65-110); Potassium 3.8 mmol/L (3.4-5.0); Sodium 136 mmol/L (137-145)
[2023-06-11 04:49] LABS: Vancomycin Trough 11.1 ug/mL (10.0-20.0)
[2023-06-11 05:48] VITALS: BP 126/83; PULSE 65; RESP 14; TEMP 36.4; O2SAT 96
[2023-06-11] MEDS: metroNIDAZOLE 500 MG/ISO 100ML 500 MG/100 ML BAG 100 MG IVPB (05:52)
[2023-06-11] MEDS: PANTOPRAZOLE 40 MG TABLET PO (07:57)
[2023-06-11] MEDS: ENOXAPARIN 40 MG/0.4 ML SYRINGE SUB-Q (07:57)
[2023-06-11] MEDS: SACCHAROMYCES BOULARDII 250 MG CAPSULE PO ×2 (07:57→12:05)
--- NOTE | 2023-06-11 11:43 | PM.DS ---
DS: Admitting Diagnosis Discharge Date 06/11/2023 Admitting Diagnosis Perineal abscess, transaminitis, hyperlipidemia DS: Discharge Diagnosis Discharge Diagnosis (1) Abscess of perineum: Code(s): L02.215 - Cutaneous abscess of perineum Status: Acute (2) HLD (hyperlipidemia): Code(s): E78.5 - Hyperlipidemia, unspecified Status: Acute DS: Summary Hospital Course Reason for hospitalization: Perineal abscess Hospital Course: This is a 63-year-old man who presented to [place] [facility] on 06/09/2023 with pain and swelling in the perineal region. He was noted to have an elevated white blood count and CT showed evidence of a perineal abscess. He was transferred to [facility] for further treatment. He underwent incision and drainage of the perineal abscess on 06/09. He was placed on broad-spectrum IV antibiotics. On postop day 1 his white blood count was improving and he was feeling better. The packing was changed but patient was still having a significant amount of pain. On postoperative day 2 his pain was improving and he tolerated the packing change at the bedside. He was remaining afebrile. Cultures were growing E coli. Final cultures and sensitivities are still pending at the time of discharge. He was tolerating the wound care and his felt comfortable continuing wound care at home. He was discharged on 06/11/2023. Status at Discharge Functional status at discharge: independent ambulation Overall status at discharge: patient is progressing back to baseline Time Spent with Patient Time attestation: Total time spent providing and/or coordinating discharge services: Time spent: Less than 30 minutes Exam Const: General: comfortable, no acute distress and alert Resp: Effort & Inspection: normal respiratory effort Auscultation: clear to auscultation bilaterally Cardio: Rate: regular rate Rhythm: regular rhythm Heart sounds: S1 normal heart sound present and S2 normal heart sound present GI: Other: Perineal packing changed. Minimal purulence drainage. Minimal surrounding erythema and induration. DS: Data Data Completed and Pending Labs on day of discharge: Labs from last 24 hours 06/11/23 03:33 WBC 7.8 RBC 3.88 L Hgb 11.9 L Hct 35.9 L MCV 92.5 MCH 30.7 MCHC 33.1 RDW 12.7 Plt Count 191 MPV 10.4 Sodium 136 L Potassium 3.8 Chloride 105 Carbon Dioxide 27 Anion Gap 4 L BUN 16 Creatinine 0.70 Estim Creat Clear Calc 122 Estimated GFR > 60 Glucose 114 H Calcium 8.4 Vancomycin Trough 11.1 Preliminary micro results at discharge 06/09/23 11:44 Anaerobic Culture - Preliminary Abscess Aerobic Culture - Preliminary Escherichia Coli Discharge Plan Discharge Attending physician on discharge: Jose Aguilar Discharging Clinician: Jose Aguilar Patient Disposition: Home, Self-Care Activity: may shower and other - see discharge instructions Diet: regular Wound Care Instructions: other - see discharge instructions Discharge Instructions: Postoperative instructions Continue daily packing changes with iodoform gauze until less than 3 in are able to be packed Okay to shower--remove packing prior to shower and then repack and dress wound afterwards No strenuous activity for the next [address] Aguilar's office for increasing pain, drainage, fevers, or other problems with incision. Patient Instructions: Antibiotic Form, Abscess (GEN) Stand Alone Forms: General Discharge Information, Work/School Release IP Follow-up/Referrals: Jose Aguilar, [Physician] - 2 Weeks Discharge Medications: New oxycodone 5 mg tablet 2.5 - 5 mg PO Q4H PRN (Reason: pain) Qty: 10 0RF amoxicillin-pot clavulanate 875-125 mg tablet 1 tablet PO Q12H Qty: 20 0RF metronidazole 500 mg tablet 500 mg PO Q8H Qty: 21 0RF Continued atorvastatin 20 mg tablet 20 mg PO DAILY aspi
== END 2023-06-11 12:56 | disposition home or self-care (01) | DRG 383 ==
PROVIDERS: Admitting Provider Surgery; PCP Internal Medicine; Visit Provider Surgery
PROC: 0J9B3ZZ Drainage of Perineum Subcutaneous Tissue and Fascia, Percutaneous Approach (ICD-10-PCS; CPT 46040; principal; 2023-06-09 11:30)
DX: L02.215 Cutaneous abscess of perineum (principal); B96.20 Unspecified Escherichia coli [E. coli] as the cause of diseases classified elsewhere; E78.5 Hyperlipidemia, unspecified; K21.9 Gastro-esophageal reflux disease without esophagitis; R74.01 Elevation of levels of liver transaminase levels; Z79.82 Long term (current) use of aspirin
CPT/HCPCS: 36415; 80048; 80202; 85027; 87070; 87075; 87077; 87186; 87205; A9270; J0692; J1100; J1650; J1836; J2250; J2270; J2405; J2704; J3010; J3370; J7120

== ENCOUNTER 2024-01-22 12:14 | Outpatient (CLI) | payer OTHER, SELFPAY ==
--- NOTE | 2024-01-22 12:36 | ECG_ITS ---
Measurements Intervals Only Rate: 77 P: 34 WA: 189 QRS: -13 QRSD: 102 T: 18 QT: 359 QTc: 407 Interpretive Statements SINUS RHYTHM BASELINE ARTIFACT- I, III, AVL, V3 NORMAL ECG COMPARED TO ECG 05/23/2020 12:50:43 NO SIGNIFICANT CHANGES Electronically Signed On 01-22-2024 12:51:33 CDT by Dandre Espana D.O.
== END 2024-01-22 12:15 | disposition home or self-care (01) ==
LOC: ANHSURGERY 12:21
PROVIDERS: PCP Internal Medicine; Visit Provider Surgery
DX: E78.5 Hyperlipidemia, unspecified (principal); Z01.818 Encounter for other preprocedural examination
CPT/HCPCS: 93005

== ENCOUNTER 2024-01-27 00:43 | Day surgery (SDC) | payer OTHER, SELFPAY ==
[2024-01-20 14:22] VITALS: BMI 33.2
--- NOTE | 2024-01-20 14:32 | SUR.PREOP ---
Report to the Outpatient Waiting Room, entrance under the green pavilion located off [facility], at time 0800 on date 01/27/24. Planned Procedure Time: 1000. Time changes happen often and if your time is changed the preop area will call you the afternoon before. - You and your visitor will be asked to self-screen and do not enter if you have any COVID symptoms. - A mask is optional within the hospital at this time. Nothing by mouth after midnight - No food from midnight until time of surgery not - Infants may have breast milk until 4 hours before surgery, infant formula 6 hours prior to surgery. - Children will be allowed to drink immediately following surgery. If applicable, please bring a bottle or sippy cup to assist with drinking. Juice, water, soda, and popsicles are readily available. For infants on formula, please bring formula the day of surgery. Pacifiers are allowed. Take the following medications with a SIP of water the morning of surgery: ___na____ DO NOT STOP ANY OF YOUR OTHER PRESCRIPTION MEDICATIONS PRIOR TO SURGERY ?EXCEPT THE FOLLOWING Medications to discontinue per physician vitamin c and probiotic 3 days prior to procedure____ Date to take last dose Please no make-up, nail [place], hairspray, perfume, deodorant, or body powder the day of surgery. No jewelry (including any body piercings) or valuables the day of surgery, leave them at home. Please take a shower or bath the night before, or the morning of, surgery with an antibacterial soap. Wear comfortable, loose fitting clothing. Children are encouraged to wear pajamas. - Jewelry must be removed prior to entering the operating room. Rings and piercings that are not removed may be cut off. - The hospital will not accept responsibility for valuables. - Please leave all valuables, including medications, at home the day of surgery. If you are going home after surgery, a licensed jitney driver must drive you home. - NO public transportation without another adult if you receive anesthesia. - We recommend that an adult stay with you for 24 hours following discharge. - We also recommend that you do not drive, make important decision, drink alcoholic beverages, or take any drugs that were not prescribed by your health care provider for at least 24 hours after your discharge time. For Pediatric surgeries, we recommend two adults accompany the child home. Follow any additional instructions given to you from your surgeon. If you or anyone in your household have experienced Covid symptoms in the past week, please notify your surgeon or the nurse liaison at the phone number below for possible testing. Telephone instructions given to _patient_and asked if any additional questions and then verbalized understanding. Patient advised to call surgeon office or pre surgery nurse liaison [phone] if any additional questions.
[2024-01-27] VITALS (8 sets, daily range): BP systolic 109–130; BP diastolic 75–84; PULSE 63–80; RESP 11–18; TEMP 36.3–36.4; O2SAT 98–100; BMI 33.6
[2024-01-27] MEDS: ACETAMINOPHEN 500 MG TABLET 1000 MG PO (08:17)
[2024-01-27] MEDS: LACTATED RINGERS 1,000 ML 30 ML IV CONT (08:17)
[2024-01-27] MEDS: KETOROLAC 15 MG/ML VIAL (*BKC) IV PUSH (08:18)
--- NOTE | 2024-01-27 09:31 | WPDHPUPDATE1 ---
History and Physical Update Update Date/Time: 01/27/24 09:31 History and Physical has been reviewed, including an updated exam of the patient. There are NO changes in the patient's condition. Risks, benefits, and alternatives have been discussed and questions answered. Patient agrees to proceed with procedure.
--- NOTE | 2024-01-27 09:31 | PM.IMHP ---
H&P: HPI History of Present Illness Date/Time: 01/27/24 09:31 Chief Complaint: Anal fistula Narrative: This is a 63-year-old man presents for rectal exam under anesthesia anal fistulotomy. He presented with a prior history of perirectal abscess and now has evidence of a fistula. He reports no changes since last seen in the office. Review of Systems Review of Systems: All systems reviewed & are unremarkable except as noted in HPI and below Constitutional: Constitutional: Denies chills, Denies fever(s), Denies headache(s) and Denies weight loss Eyes: Eyes: Denies change in vision ENT: Denies dizziness, Denies headache(s), Denies neck mass and Denies throat swelling Cardiovascular: Cardiovascular: Denies chest pain, Denies lightheadedness and Denies dyspnea Respiratory: Respiratory: Denies cough, Denies dyspnea and Denies wheezing Gastrointestinal: Gastrointestinal: Denies abdominal pain, Denies change in bowel habits, Denies nausea and Denies vomiting Genitourinary: Genitourinary: Denies hematuria and Denies dysuria Musculoskeletal: Musculoskeletal: Reports as per HPI Integumentary/Breasts: Skin/Breast: Reports as per HPI Neurologic: Denies dizziness and Denies headache(s) Allergic/Immunologic: Allergic/Immunologic: Denies throat swelling and Denies wheezing PMFSH Past Medical History Medical History GERD (gastroesophageal reflux disease) HLD (hyperlipidemia) Surgical History Surgical History History of incision and drainage 06/09/23 Incision and drainage of complicated perineal abscess Family History Family History Mother Breast cancer Social History Social History Smoking status: Smoker, status unknown Alcohol intake: current Alcohol use details: 3-4/day Substance use: never Lack of Transportation: No Lack of Food: Never True Current Housing: I Have Housing Concerned About Future Housing: No Difficulty Paying Gas/Electric Bills: No Difficulty Paying for Meds: No Currently Unemployed: No Education: High School Diploma/GED Difficulty w/ Childcare or Family Care: No Living arrangements: with family Occupation/Education: 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 Spiritual care concerns: No Meds Home Medications and Allergies Home Medications Medication Instructions Recorded Confirmed Type atorvastatin 20 mg tablet 20 mg PO HS 05/23/20 01/20/24 History pantoprazole 40 mg tablet,delayed 40 mg PO HS 05/23/20 01/20/24 History release Lactobacillus 1 cap PO DAILY 01/20/24 01/20/24 History acidophilus-Bifidobac.animalis 2.5 billion cell capsule (Daily Probiotic) ascorbic acid (vitamin C) 500 mg 500 mg PO DAILY 01/20/24 01/20/24 History capsule aspirin 81 mg capsule 81 mg PO DAILY 01/20/24 01/20/24 History Allergies Allergy/AdvReac Type Severity Reaction Status Date / Time albuterol AdvReac Unknown Fatigued Verified 01/27/24 08:04 duloxetine AdvReac Unknown Fatigued Verified 01/27/24 08:04 gabapentin AdvReac Unknown Fatigued Verified 01/27/24 08:04 nortriptyline AdvReac Unknown Fatigued Verified 01/27/24 08:04 Vital Signs Vital Signs - 24 hr 01/27/24 08:24 Temperature 36.4 C L Pulse Rate 80 Respiratory Rate 16 Blood Pressure 130/81 Pulse Oximetry 98 Oxygen Delivery Room Air Exam Const: General: no acute distress and alert Orientation/consciousness: patient oriented x3 HENMT: Head: normocephalic and atraumatic Ears: hearing grossly normal bilaterally Face/Nose/Sinus: Normal nares present Mouth: Yes Normal oral and palatal mucosa present Eyes: Periorbital: periorbital findings normal Sclera: sclerae normal EOM: EOMs intact bilaterally Neck: Neck: normal visual inspection, no lymp
--- NOTE | 2024-01-27 09:40 | WPDANESEPPF ---
Anes - Initial Pre Proc Eval Procedure: Operation Date: 01/27/24 10:00 Proposed Procedures p Rectal Examination Under Anesthesia, Anal Fistulotomy - Jose Aguilar DO Date/Time: 01/27/24 09:40 Surgeon: Jose Aguilar DO Pre Op Diagnosis: Anal Fistula Patient Data Age: 63 Gender: M Height: 1.83 m Weight: 112.6 kg Last Vital Signs Temp 97.5 F L 01/27/24 08:24 Pulse 80 01/27/24 08:24 Resp 16 01/27/24 08:24 BP 130/81 01/27/24 08:24 Pulse Ox 98 01/27/24 08:24 O2 Del Method Room Air 01/27/24 08:24 Allergies Allergy/AdvReac Type Severity Reaction Status Date / Time albuterol AdvReac Unknown Fatigued Verified 01/27/24 08:04 duloxetine AdvReac Unknown Fatigued Verified 01/27/24 08:04 gabapentin AdvReac Unknown Fatigued Verified 01/27/24 08:04 nortriptyline AdvReac Unknown Fatigued Verified 01/27/24 08:04 Home Medications Medication Instructions Recorded Confirmed Type atorvastatin 20 mg tablet 20 mg PO HS 05/23/20 01/20/24 History pantoprazole 40 mg tablet,delayed 40 mg PO HS 05/23/20 01/20/24 History release Lactobacillus 1 cap PO DAILY 01/20/24 01/20/24 History acidophilus-Bifidobac.animalis 2.5 billion cell capsule (Daily Probiotic) ascorbic acid (vitamin C) 500 mg 500 mg PO DAILY 01/20/24 01/20/24 History capsule aspirin 81 mg capsule 81 mg PO DAILY 01/20/24 01/20/24 History Patient hx anesthesia problems: none Family hx anesthesia problems: none Results Review: All pre-operative results and documents have been reviewed as part of the pre-operative evaluation. [facility] Past Medical History Medical History GERD (gastroesophageal reflux disease) HLD (hyperlipidemia) Surgical History Surgical History History of incision and drainage 06/09/23 Incision and drainage of complicated perineal abscess Family History Family History Mother Breast cancer Social History Social History Smoking status: Smoker, status unknown Alcohol intake: current Alcohol use details: 3-4/day Substance use: never Lack of Transportation: No Lack of Food: Never True Current Housing: I Have Housing Concerned About Future Housing: No Difficulty Paying Gas/Electric Bills: No Difficulty Paying for Meds: No Currently Unemployed: No Education: High School Diploma/GED Difficulty w/ Childcare or Family Care: No Living arrangements: with family Occupation/Education: retired 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 Informed Consent: The patient's anesthetic plan and its attendant risks and benefits were discussed with the patient/family/POA. Questions were solicited and answers provided to the satisfaction of the patient/family/POA.
[2024-01-27] MEDS: ceFAZolin 2 GM/D5W 50 ML 2 GM/50 ML BAG IVPB (09:50)
[2024-01-27] MEDS: BUPivacaine HCL 0.5% 10 ML AMP 30 ML INFILTRATE (10:06)
--- NOTE | 2024-01-27 10:33 | P.OP_ITS ---
Procedure Note - Detailed Date of Procedure 01/27/24 Pre-op Diagnosis Anal Fistula Post-op Diagnosis Same ( Anterior midline suprasphincteric anal fistula) Procedure Performed Rectal exam under anesthesia with placement of seton drain Surgeon Jose Aguilar, DO Anesthesia MAC and Local ( 0.5% bupivacaine with epinephrine) Indications this is a 63-year-old man who presents with an anal fistula. He had a history of an abscess in his perineum that was incised and drained in June of 2023. He had healed most of the way from this but still continues to have some occasional drainage from a small opening the skin. He was found to have a small sinus tract on the anterior midline. Discussions were made with the patient about treatment options and decision was made to proceed with rectal exam under anesthesia with anal fistulotomy. Findings Rectal exam under anesthesia was performed. The patient was found to have an anterior midline anal fistula tract. The external opening was about 2-3 cm away from the anal verge. The fistula tract was carefully probed with a small lacrimal probe and the fistula was identified going superior to some of the sphincter muscle fibers. There was concern that this was going to be going through too much of the sphincter muscle to perform a fistulotomy. I therefore placed a seton drain with a vessel loop. No other rectal abnormalities were noted. Description of Procedure procedure as well as risks, benefits, and alternatives were discussed with the patient. Written consent was obtained and placed in chart prior to procedure. Patient was brought back to surgical suite. Was placed supine on operating table. Time-out was done to confirm patient and procedure. he was then intubated by Anesthesia Department. He was then repositioned to dorsal lith otomy position. His perirectal area was prepped and draped in sterile fashion using Betadine prep. Digital rectal exam was initially performed. A medium Hill-Argueta anoscope was then inserted and the anal rectal canal was carefully inspected. The fistula opening was identified on the perineal skin an anterior midline and a small lacrimal probe was used to carefully identify the tract entering into the internal anal rectal canal. The tract was identified going superior to some of sphincter muscle fibers which made this too high risk to perform a fistulotomy. A silk suture was placed around the end of the lacrimal probe and this was delivered through the fistula tract. I then tied a red vessel loop to the silk suture and then delivered this through the fistula tract. The vessel loop was then secured in place loosely using 0 silk ties. The area was then irrigated and inspected and no other abnormalities were noted. 0.5% bupivacaine with epinephrine was infiltrated locally around the anterior midline perianal region. Fluff gauze was then applied followed by mesh underwear. The patient was then awakened from anesthesia, extubated, and transferred to recovery. Estimated Blood Loss 5 Complications No immediate complications Condition Stable Disposition Same day [facility] Billing Surgery - Charge Forward: Surgery Billing
== END 2024-01-27 12:31 | disposition home or self-care (01) ==
PROVIDERS: PCP Internal Medicine; Visit Provider Surgery
PROC: (CPT 46275; principal; 2024-01-27 10:00)
DX: K60.3 Anal fistula (principal); E78.5 Hyperlipidemia, unspecified; K21.9 Gastro-esophageal reflux disease without esophagitis; Z79.82 Long term (current) use of aspirin; Z80.3 Family history of malignant neoplasm of breast
CPT/HCPCS: 46275; A9270; J0690; J1100; J1170; J1885; J2250; J2405; J2704; J3010; J7120

== ENCOUNTER 2024-08-13 09:24 | Outpatient (RCR) | payer OTHER, SELFPAY ==
[2024-08-13 09:28] VITALS: BMI 33.2
[2024-08-13 09:33] VITALS: BMI 33.2
== END 2024-11-02 09:32 | disposition home or self-care (01) ==
LOC: ANHDMC 09:24
PROVIDERS: PCP Internal Medicine; Visit Provider Internal Medicine
DX: E78.5 Hyperlipidemia, unspecified (principal); R73.03 Prediabetes; Z68.33 Body mass index [BMI] 33.0-33.9, adult
CPT/HCPCS: 97802

== ENCOUNTER 2025-02-25 12:37 | Outpatient (CLI) | payer OTHER, SELFPAY ==
[2025-02-25 12:51] LABS: Add Urine Microscopic? YES; Appearance Urine Clear (Clear); Basophils Absolute Auto 0.04 K/mm3 (0.00-0.10); Basophils Percent Auto 0.7 % (0.0-1.0); Bilirubin Urine Negative (Negative); Blood Urine Negative (Negative); Color Urine Yellow (Yellow); Eosinophils Absolute Auto 0.16 K/mm3 (0.02-0.50); Eosinophils Percent Auto 2.6 % (1.0-6.0); Glucose Urine UA Negative (Negative); Hematocrit 41.8 % (40.0-54.0); Immature Granulocyte Absolute 0.02 K/mm3 (0.00-0.00); Immature Granulocyte Percent A 0.3 % (0.0-0.0); Ketones Urine Trace (Negative); Leukocyte Esterase Ur Negative LEU/UL (Negative); Lymphocytes Absolute Auto 1.41 K/mm3 (1.10-4.50); Lymphocytes Percent Auto 23.3 % (18.0-42.0); Mean Corpuscular HGB Conc 33.5 g/dL (32-36); Mean Corpuscular Hemoglobin 29.9 pg (27.0-31.0); Mean Corpuscular Volume 89.1 fL (78.0-102.0); Mean Platelet Volume 10.6 fl (8.7-11.0); Monocytes Absolute Auto 0.54 K/mm3 (0.10-0.90); Monocytes Percent Auto 8.9 % (2.0-11.0); Neutrophils Absolute Auto 3.88 K/mm3 (1.70-7.20); Neutrophils Percent Auto 64.2 % (50.0-70.0); Nitrate Urine Negative (Negative); Platelet Count Result 197 K/mm3 (150-420); Protein Urine Trace (Negative); Red Blood Count 4.69 M/mm3 (4.70-6.10); Red Cell Distribution Width 13.1 % (11.6-14.4); Specific Grav Ur >= 1.030 (1.010-1.020); Urobilinogen Urine 0.2 mg/dL (0.2-1.0); White Blood Count 6.1 K/mm3 (4.8-10.8); pH Urine 5.5 (5.0-8.0)
[2025-02-25 13:02] LABS: RBC Urine None seen /hpf (0-2); WBC Urine None seen /hpf (0-3)
[2025-02-25 13:03] LABS: Bacteria Urine Trace /hpf; Mucus Urine Heavy /lpf
[2025-02-25 13:21] LABS: Hemoglobin A1C 6.1 % (<5.7)
[2025-02-25 13:31] LABS: Alanine Aminotransferase 49 U/L (16-63); Albumin Level 4.2 g/dL (3.4-5.0); Alkaline Phosphatase 104 U/L (46-116); Anion Gap 10 mmol/L (4-12); Aspartate Amino Transferase 27 U/L (15-37); Bilirubin,Total 1.1 mg/dL (0.00-1.00); Blood Urea Nitrogen 18 mg/dL (7-18); Carbon Dioxide 26 mmol/L (21-32); Chloride 106 mmol/L (98-108); Cholesterol 226 mg/dL (0-200); Estimated Glomerular Filt Rate > 60; Glucose 129 mg/dL (70-99); HDL Direct 40 mg/dL (40-60); Osmolality Calculated 297 mOsm/kg (285-295); Potassium 4.6 mmol/L (3.5-5.1); Sodium 142 mmol/L (136-145); Total Protein 6.9 g/dL (6.4-8.2)
[2025-02-25 13:34] LABS: LDL Cholesterol Calculated 30 mg/dL (<130); Triglycerides 778 mg/dL (0-150)
--- OUTSIDE RECORDS SUMMARY | 2025-02-25 13:41 | XMS_ITS | Referral Summary ---
Author Organization [facility] Building [address] Address [address] [place] [address] Care Team Providers Care Polymerization Kettle Operator Name Role Phone DanaJose valerio Conrado DO Unavailable [phone] Nico Parisi MD Primary Care Provider [phone] Manish Rowe MD Unavailable [phone] Allergies No known active allergies Medications ascorbic acid (VITAMIN C) 100 mg tabletIndicatio ns:Vitamin C Deficiency Take 1 tablet (100 mg total) by mouth assistant office manager before breakfast Active aspirin 81 mg enteric coated tabletIndicatio ns:prevention of thrombosis Take 1 tablet (81 mg total) by mouth assistant office manager before breakfast Active atorvastatin (LIPITOR) 20 mg tabletIndicatio ns:hyperlipidem ia Take 1 tablet (20 mg total) by mouth nightly Active pantoprazole DR (PROTONIX) 40 mg EC tabletIndicatio ns:Treatment of Non-Bleeding Gastric Disorder Take 1 tablet (40 mg total) by mouth assistant office manager before breakfast Active acetaminophen (TYLENOL) 500 mg tablet Take 2 tablets (1,000 mg total) by mouth every 8 (eight) hours 60 tablet 4 Active ibuprofen (ADVIL,MOTRIN) 600 mg tablet Take 1 tablet (600 mg total) by mouth every 8 (eight) hours 60 tablet 4 Active docusate sodium (COLACE) 100 mg capsuleIndicati ons:constipatio n Take 1 capsule (100 mg total) by mouth 2 (two) times a day with a glass of water 60 capsule 4 Active Additional Information Patient not taking.Reported on 08/21/2024 Active Problems Problem Noted Date Diagnosed Date Encounter for preoperative assessment 03/26/2024 Anal fistula 03/17/2024 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 4 or more times a week 05/13/2024 Q2: How many drinks containi ng alcohol do you have on a typical day when you are drinking? 5 or 6 Q3: How often do you have si x or more drinks on one occasion? Weekly 05/13/2024 Personal Safety Answer Date Recorded Have you ever been in or are you currently in a harmful physical or emotional relationship or is someone making you feel afraid or unsafe? 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 Gender Identity Not on file Sexual Orientation Not on file Last Filed Vital Signs Vital Sign Reading Time Taken Comments Blood Pressure 123/85 08/21/2024 1:35 PM CDT Pulse 67 08/21/2024 1:35 PM CDT Temperature 36.7 C (98.1 F) 08/21/2024 1:35 PM CDT Respiratory Rate 19 05/22/2024 10:2 0 AM CDT Oxygen Saturation 99% 08/21/2024 1:35 PM CDT Inhaled Oxygen Concentration - - Weight 112.4 kg (247 lb 12.8 oz) 08/21/2024 1:35 PM CDT Height 182.9 cm (6') 08/21/2024 1:35 PM CDT Body Mass Index 33.61 08/21/2024 1:35 PM CDT Plan of Treatment Not on file Procedures Procedure Name Priority Date/Time Associated Diagnosis Comments COLONOSCOPY 03/30/2014 12:00 AM CDT from Last 3 Months or Most Recently Relevant to Health Maintenance Results * COLONOSCOPY (03/30/2014 12:00 AM CDT) Anatomical Region Laterality Modality Other Narrative 03/30/2014 12:00 AM CDT Ordered by an unspecified provider. Procedure Note Provider, MD Vera - 03/30/2014 12:00 AM CDT PROCEDURE REPORT Patient: ISMA ZAMORA Account: [id number] Room No: : 1960 Patient Type: SDS Attend.: Kaveh Walsh M.D. Admit Date: 03/30/2014 Dict.: Kaveh Walsh M.D. Disch. Date: 03/30/2014 NAME OF PROCEDURE: Colonoscopy with polypectomy by cold biopsy forceps. INDICATIONS: Screening for colon cancer. DATE OF PROCEDURE: 03/30/14 PRIMARY CARE PHYSICIAN: Dr. Parisi. BRIEF HISTORY AND PHYSICAL: The patient is a 53-year-old white male. No previous colonoscopy. No family history of colon cancer. The patient presented for screening colonoscopy test. PROCEDURE: Sedation was provided by anesthesia service. The procedureof colonoscopy including indications and possible complications ofbleeding, infection, perforation requiring surgery were discussed with the patientand consent was obtained. Rectal exam prior to colonoscopy was unremarkablewithin normal with no perianal lesions. The prostate feels unremarkable. Thescope was introduced to the rectum and advanced to the cecum, which wasidentified by the ileocecal valve and appendiceal orifice. The quality of the colon preparation was excellent. The terminal ileum was normal. The cecum was normal. In the proximalpart of the ascending colon on the ileocecal valve fold, there was an 8 mmsemi-sessile polyp removed by hot snare technique. The rest of the ascending colon, transverse colon, descending colon and sigmoid colon and rectum were all unremarkable, within normal. Retroflex view of the rectum showed smallinternal hemorrhoids. IMPRESSION: 1. One semi-sessile 8 mm polyp in the proximal ascending colon, removedby hot snare technique. 2. Small internal hemorrhoid. RECOMMENDATIONS: Follow pathology report and repeat colonoscopy in fiveyears. Rose Rogers/darrian TD: 03/30/2014 17:57 CC: Dr. Parisi Authenticated by Kaveh Walsh MD On 04/07/2014 11:08:43 AM Historical Provider ENDOSCOPY PROCEDURES Karli l Result from Last 3 Months or Most Recently Relevant to Health Maintenance Insurance [facility] Care Teams Polymerization Kettle Operator Relationship Specialty Start Date End Date Nico Parisi MD [address] [place] [address] PCP - General Internal Medicine 02/03/24 Jose Aguilar DO [address] [place] [address] Referring Physician Surgery 01/29/24 Manish Rowe MD [phone] [place] [address] Surgeon Colon and Rectal Surgery 03/13/24
--- OUTSIDE RECORDS SUMMARY | 2025-02-25 13:41 | XMS_ITS | Clinical Summary ---
Author Organization [facility] Medical Office Building [address] Address [address] [place] [address] Care Team Providers Care Cone Baker Machine Name Role Phone DanaJose valerio Conrado DO Unavailable [phone] Nico Parisi MD Primary Care Provider [phone] Manish Rowe MD Unavailable [phone] Allergies No known active allergies Medications ascorbic acid (VITAMIN C) 100 mg tabletIndicatio ns:Vitamin C Deficiency Take 1 tablet (100 mg total) by mouth blower mechanic before breakfast Active aspirin 81 mg enteric coated tabletIndicatio ns:prevention of thrombosis Take 1 tablet (81 mg total) by mouth blower mechanic before breakfast Active atorvastatin (LIPITOR) 20 mg tabletIndicatio ns:hyperlipidem ia Take 1 tablet (20 mg total) by mouth nightly Active pantoprazole DR (PROTONIX) 40 mg EC tabletIndicatio ns:Treatment of Non-Bleeding Gastric Disorder Take 1 tablet (40 mg total) by mouth blower mechanic before breakfast Active acetaminophen (TYLENOL) 500 mg [...] Pronator syndrome of left upper extremity 2021 Surgical History Surgery Date Site/Laterality Comments ENDOSCOPIC LUMBAR DISCECTOMY W/ LASER 11/04/2015 - 11/03/2016 RECTAL SURGERY 06/04/2023 - 07/04/2023 MEDIAN NERVE REPAIR 05/30/2022 Left COLONOSCOPY 11/04/2010 - 11/03/2011 FISTULA REPAIR 03/26/2024 Ligation of intersphincteric fistula tract ANAL FISTULOTOMY 05/22/2024 Exam under anesthesia and anal fistulotomy Medical History Medical History Date Comments Obesity Hyperlipidemia Treated with sta tin Family History Medical History Relation Name Comments Anesthesia problems Neg Hx Social History Tobacco Use Types Packs/Day Years [...] on file 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 Gender Identity Not on file Sexual Orientation Not on file Obstetrics History Last Filed Vital Signs Vital Sign Reading [...] 08/21/2024 1:35 PM CDT Plan of Treatment Health Maintenance Due Date Last Done Comments Depression Screening 1960 Hepatitis C Screening 1960 Prostate Cancer Screening-PSA 1960 DTaP/Tdap/Td Vaccine (1 - Tdap) 1972 Hepatitis B Screening 1979 Regular Well Visit/Exam 18-64 1979 Colon Cancer Screening-Colonoscopy 03/30/2024 03/30/2014 Covid-19 Vaccine ( season) 2024 09/05/2023, 08/23/2022, 02/11/2022, Additional history exists Influenza Vaccine (Season Ended) 2025 09/05/2023, 08/23/2022, 08/30/2021, Additional history exists Zoster Vaccine Completed 01/31/2021, 10/10/2020 Pneumococcal vaccine <65 Aged Out No longer eligible based on patient's age to complete this topic Procedures Procedure Name Priority Date/Time Associated Diagnosis Comments COLONOSCOPY 03/30/2014 12:00 AM CDT from Last 3 Months or Most Recently Relevant to Health Maintenance Results * COLONOSCOPY (03/30/2014 12:00 AM CDT) Anatomical Region Laterality Modality Other Narrative 03/30/2014 12:00 AM CDT Ordered by an unspecified provider. Procedure Note Provider, MD Vera - 03/30/2014 12:00 AM CDT PROCEDURE REPORT Patient: ISMA ZAMORA Account: [id number] Room No: : 1960 Patient Type: [facility] Attend.: Kaveh Walsh M.D. Admit Date: 03/30/2014 [...] pathology report and repeat colonoscopy in fiveyears. Kaveh Walsh M.D. JOHNNY/darrian TD: 03/30/2014 17:57 CC: Dr. Parisi Authenticated by Kaveh Walsh MD On 04/07/2014 11:08:43 AM Historical Provider ENDOSCOPY PROCEDURES Karli l Result from Last 3 Months or Most Recently Relevant to Health Maintenance Insurance [facility] [employer] [facility] Care Teams Cone Baker Machine Relationship Specialty Start Date End Date Nico Parisi MD [address] [facility] [address] [place] [address] PCP - General Internal Medicine 02/03/24 Jose Aguilar DO [address] [place] [address] Referring Physician Surgery 01/29/24 Manish Rowe MD [phone] [place] [address] Surgeon Colon and Rectal Surgery 03/13/24
[2025-02-25 14:28] LABS: LDL Cholesterol Direct 58 mg/dL (0-130)
== END 2025-02-25 12:38 | disposition home or self-care (01) ==
LOC: CHSLAB 12:40
PROVIDERS: PCP Internal Medicine; Visit Provider Internal Medicine
DX: E78.5 Hyperlipidemia, unspecified (principal); R73.01 Impaired fasting glucose
CPT/HCPCS: 36415; 80053; 80061; 81001; 83036; 83721; 85025

== ENCOUNTER 2025-07-28 10:31 | Outpatient (CLI) | payer OTHER, SELFPAY ==
--- NOTE | ~2025-07-28 | XR_ITS ---
EXAMINATION: XR scapula RT, 07/28/2025 10:41 CDT HISTORY: RIGHT SCAPULAR PAIN NECK PAIN COMPARISON: No comparisons available. Findings: No acute fracture or malalignment. No significant degenerative changes. Soft tissues unremarkable. Impression: No acute fracture or malalignment. Reviewed, dictated and finalized at location A. Impression: No acute fracture or malalignment.
--- NOTE | ~2025-07-28 | XR_ITS ---
XR thoracic spine 3V Indication: RIGHT SCAPULAR PAIN NECK PAIN Comparison: None Findings: Moderate loss of vertebral height. No acute fracture or subluxation. There are remote compression deformities noted. Moderate osteopenia. Moderate loss of disc height throughout. Soft tissues unremarkable Impression: No acute abnormality. Reviewed, dictated and finalized at location A. Impression: No acute abnormality.
--- NOTE | ~2025-07-28 | XR_ITS ---
XR_[id number]_CR Indication: RIGHT SCAPULAR PAIN NECK PAIN Comparison: None Findings: The vertebral heights are intact. No fracture or subluxation. Severe loss of disc height C3-4, C4-5 C5-6. Soft tissues unremarkable Impression: No acute abnormality. Reviewed, dictated and finalized at location A. Impression: No acute abnormality.
--- NOTE | ~2025-07-28 | XR_ITS ---
Examination: XR chest 2V Clinical History: RIGHT SCAPULAR PAIN NECK PAIN Comparison: 05/23/2020 Technique: PA and Lateral Findings: Cardiomediastinal silhouette normal size and configuration. Lungs clear. No acute bony abnormality. IMPRESSION: 1. No acute cardiopulmonary findings. Reviewed, dictated and finalized at location R.
--- OUTSIDE RECORDS SUMMARY | 2025-07-28 11:27 | XMS_ITS | Clinical Summary ---
Author Organization [facility] Address [address] [place] [address] Care Team Providers Care Audit Intern Name Role Phone Nico Parisi MD Primary Care Provider [phone] Allergies No known active allergies Medications atorvastatin 20 MG tablet Take 20 mg by mouth nightly at bedtime. 2 Active pantoprazole EC 40 MG tablet Take 40 mg by mouth daily. 2 Active aspirin EC 81 MG tablet Take 81 mg by mouth daily. Active Ascorbic Acid (VITAMIN C) 100 MG tablet Take 100 mg by mouth daily. Active ibuprofen 400 MG tablet Take 400 mg by mouth every 6 (six) hours as needed for Pain. 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 Left elbow pain 07/13/2022 Pronator syndrome of left upper extremity 2021 Family History Medical History Relation Comments No Known Problems Father Cancer Mother Relation Status Comments Father Mother Social History Tobacco Use Types Packs/Day Years Used Date Smoking Tobacco: Never Smokeless Tobacco: Never Alcohol Use Standard Drinks/Week Comments Yes 0 (1 standard drink = 0.6 oz pur e alcohol) socailly Sex and Gender Information Value Date Recorded Sex Assigned at Not on file Legal Sex Male 5:20 PM CDT Gender Identity Not on file Sexual Orientation Not on file Last Filed Vital Signs Vital Sign Reading Time Taken Comments Blood Pressure 126/83 05/30/2022 10:30 AM CDT Pulse 63 05/30/2022 10:30 AM CDT Temperature 36.3 C (97.4 F) 05/30/2022 10:30 AM CDT Respiratory Rate 18 05/30/2022 10:30 AM CDT Oxygen Saturation 96% 05/30/2022 10:30 AM CDT Inhaled Oxygen Concentration - - Weight 106.6 kg (235 lb) 09/12/2022 3:59 PM SILVER SERVICE WAITER Height 182.9 cm (6') 09/12/2022 3:59 PM SILVER SERVICE WAITER Body Mass Index 31.87 09/12/2022 3:59 PM SILVER SERVICE WAITER Plan of Treatment Health Maintenance Due Date Last Done Comments Colorectal Cancer Screening Colonoscopy (10 Years) 1960 Annual Physical 1964 Hepatitis C 1979 DTaP, Tdap and Td Vaccines (1 - Tdap) 1980 Pneumococcal Vaccine: 50+ Years (1 of 1 - PCV) 2011 COVID-19 Vaccine ( season) 2025 02/11/2022, 09/18/2021, 12/30/2020, Additional history exists RSV Immunization or 60+ Years (1 - 1-dose 75+ series) 2036 Zoster Vaccines Completed 01/31/2021, 10/10/2020 Meningococcal B Vaccine Aged Out No l onger eligible based on patient's age to complete this topic Meningococcal Vaccine Aged Out No katlyn etelvina eligible based on patient's age to complete this topic RSV Immunizations Under 20 Months Aged Out No longer eligible based on patient's age to complete this topic Insurance [facility] [employer] Care Teams Audit Intern Relationship Specialty Start Date End Date Nico Parisi MD [address] [place] [address] PCP - General INTERNAL MEDICINE 03/20/22
--- OUTSIDE RECORDS SUMMARY | 2025-07-28 11:27 | XMS_ITS | Clinical Summary ---
Author Organization [facility] Medical Office Building [address] Address [address] [place] [address] Care Team Providers Care Learning Specialist Name Role Phone DanaJose valerio Conrado DO Unavailable [phone] Nico Parisi MD Primary Care Provider [phone] Manish Rowe MD Unavailable [phone] Allergies No known active allergies Medications ascorbic acid (VITAMIN C) 100 mg tabletIndicatio ns:Vitamin C Deficiency Take 1 tablet (100 mg total) by mouth chainman before breakfast Active aspirin 81 mg enteric coated tabletIndicatio ns:prevention of thrombosis Take 1 tablet (81 mg total) by mouth chainman before breakfast Active atorvastatin (LIPITOR) 20 mg tabletIndicatio ns:hyperlipidem ia Take 1 tablet (20 mg total) by mouth nightly Active pantoprazole DR (PROTONIX) 40 mg EC tabletIndicatio ns:Treatment of Non-Bleeding Gastric Disorder Take 1 tablet (40 mg total) by mouth chainman before breakfast Active acetaminophen (TYLENOL) 500 mg [...] on file 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 Admit Date: 03/30/2014 [...] Most Recently Relevant to Health Maintenance Insurance [facility] [employer] [facility] [employer] Care Teams Learning Specialist Relationship Specialty Start Date End Date Nico Parisi MD [address] [facility] [address] [place] [address] PCP - General Internal Medicine 02/03/24 Jose Aguilar DO [address] [place] [address] Referring Physician Surgery 01/29/24 Manish Rowe MD [phone] [place] [address] Surgeon Colon and Rectal Surgery 03/13/24
== END 2025-07-28 10:32 | disposition home or self-care (01) ==
LOC: CHSIMG 10:34
PROVIDERS: PCP Internal Medicine; Visit Provider Internal Medicine
DX: M54.2 Cervicalgia (principal); M54.89 Other dorsalgia
CPT/HCPCS: 71046; 72040; 72072; 73010